=== PATIENT | male | born 1970 | race Caucasian/White ===

== ENCOUNTER 2016-11-27 11:27 | Emergency (ER) | payer BC ==
--- NOTE | 2016-11-27 14:12 | ED ---
Throat Pain/Nasal Congestion - History of Current Complaint Chief Complaint: EDEyeProblem Time Seen by Provider: 11/27/16 12:21 - Allergies/Home Medications Allergies/Adverse Reactions: Allergies Allergy/AdvReac Type Severity Reaction Status Date / Time No Known Allergies Allergy Verified 03/29/15 00:45 PMH/Surg Hx/FS Hx/Imm Hx Sensory History: Reports: Hx Contacts or Glasses Opthamlomology History: Reports: Hx Contacts or Glasses Infectious Disease History: No Infectious Disease History: Denies: Traveled Outside the [place] in Last 30 Days - Social History Alcohol Use: Occasionally Substance Use Type: Reports: None Smoking Status (MU): Never Smoked Tobacco Physical Exam Vital Signs On Initial Exam: Initial Vitals Temp Pulse Resp BP Pulse Ox 97.8 F 78 17 128/80 99 11/27/16 11:47 11/27/16 11:47 11/27/16 11:47 11/27/16 11:47 11/27/16 11:47 Diagnostics - Vital Signs Vital Signs Temp Pulse Resp BP Pulse Ox 11/27/16 12:08 97.8 F 78 17 128/80 99 11/27/16 11:47 97.8 F 78 17 128/80 99 - Laboratory Lab Statement: Any lab studies that have been ordered have been reviewed, and results considered in the medical decision making process. EENT Course/Dx - Diagnoses Provider Diagnoses: Corneal abrasion, right Discharge - Discharge Plan Condition: Stable Disposition: HOME Patient Education Materials: Corneal Abrasion (ED) Additional Instructions: Use prescribed eye drop as directed. You may decrease frequency on days 4-7 to two-three times a day. Continue wearing sunglasses. Rest eye and keep shut as much as possible. Do not stick anything into the eye. Take Advil for pain and inflammation as needed. If symptoms persist or worsen such as loss of vision please make an appointment with eye doctor or primary care doctor.
[2016-11-27 14:26] VITALS: BP 127/90
== END 2016-11-27 14:25 | disposition home or self-care (01) ==
LOC: ED 11:27
DX: S05.01XA Injury of conjunctiva and corneal abrasion without foreign body, right eye, initial encounter (principal); X58.XXXA Exposure to other specified factors, initial encounter; Y93.89 Activity, other specified; Y92.9 Unspecified place or not applicable
CPT/HCPCS: 99282